=== PATIENT | male | born 1970 | race Caucasian/White ===

== ENCOUNTER 2023-09-23 11:22 | Day surgery (SDC) | payer BC ==
[2023-09-23] MEDS ORDERED: Sodium Chloride 0.9(Preservative Free) 10 ML IJ ONE (11:23)
[2023-09-23] MEDS ORDERED: Decadron 4 MG INJ IV ONE (11:23)
[2023-09-23] MEDS ORDERED: XYLOCAINE-MPF 1% 5ML SDV IJ ONE (11:23)
[2023-09-23] MEDS ORDERED: DIPRIVAN 200 MG/20 ML IV ONE ×2 (13:08→13:30)
[2023-09-23] MEDS ORDERED: Lactated Ringers 1,000 ML IV ONE (15:04)
--- NOTE | 2023-09-23 21:01 | XRAY ---
Indication: Right L3-L5 transforaminal SHAYNA. Intraoperative fluoroscopy provided for 26 seconds. 5 digital spot image submitted for interpretation demonstrates posterior needle tip projecting over the expected right L3 and L4 nerve roots. Small amount of contrast injected for needle tip placement. Correlate with intraoperative findings/report.
--- NOTE | 2023-09-23 21:03 | XRAY ---
Indication: Right piriformis injection Intraoperative fluoroscopy provided for 7 seconds. Single digital spot image submitted for interpretation demonstrates posterior needle tip projecting over the right piriformis. Small amount of contrast injected for needle tip placement. Correlate with intraoperative findings/report.
--- NOTE | 2023-09-23 21:43 | XRAY ---
26 seconds of fluoroscopy was used in surgery for a right L3-L5 transforaminal SHAYNA.
--- NOTE | 2023-09-23 21:43 | XRAY ---
7 seconds of fluoroscopy was used in surgery for a right piriformis injection.
== END 2023-09-23 13:47 | disposition home or self-care (01) ==
LOC: SDC-PAIN 11:22
PROVIDERS: ATTEND Psychiatry & Neurology Pain Medicine
DX: M54.16 Radiculopathy, lumbar region (principal); M79.18 Myalgia, other site
CPT/HCPCS: 20552; 64483; 64484; 72100; 72170; 77002; 77003; J1100; J2704; Q9966

== ENCOUNTER 2024-02-03 11:33 | Day surgery (SDC) | payer BC ==
[2024-02-03] MEDS ORDERED: LIDOCAINE HCL 1% 50 MG/5 ML VL PF IJ ONE (11:34)
[2024-02-03] MEDS ORDERED: Sodium Chloride 0.9(Preservative Free) 10 ML IJ ONE (11:34)
[2024-02-03] MEDS ORDERED: Decadron 4 MG INJ IV ONE (11:34)
[2024-02-03] MEDS ORDERED: DIPRIVAN 200 MG/20 ML IV ONE (12:50)
[2024-02-03] MEDS ORDERED: Lactated Ringers 1,000 ML IV ONE (14:16)
--- NOTE | 2024-02-03 14:56 | XRAY ---
Indication: Right piriformis injection Intraoperative fluoroscopy provided for 19 seconds. Single digital spot image submitted for interpretation demonstrates posterior needle tip projecting over the right piriformis. Small amount of contrast injected for needle tip placement. Correlate with intraoperative findings/report.
--- NOTE | 2024-02-03 14:56 | XRAY ---
Indication: Right L4-S1 transforaminal SHAYNA Intraoperative fluoroscopy provided for 23 seconds. 4 digital spot image submitted for interpretation demonstrates posterior needle tips projecting over the expected right L4 and L5 nerve roots. Small amount of contrast injected for needle tip placement. Correlate with intraoperative findings/report.
--- NOTE | 2024-02-03 15:16 | XRAY ---
19 seconds of fluoroscopy was used in surgery for a right piriformis injection.
--- NOTE | 2024-02-03 15:17 | XRAY ---
23 seconds of fluoroscopy was used in surgery for a right L4-S1 transforaminal SHAYNA.
== END 2024-02-03 13:25 | disposition home or self-care (01) ==
LOC: SDC-PAIN 11:33
PROVIDERS: ATTEND Psychiatry & Neurology Pain Medicine
DX: M54.16 Radiculopathy, lumbar region (principal)
CPT/HCPCS: 20552; 64483; 64484; 72100; 72170; 77002; 77003; J1100; J2001; J2704; Q9966